=== PATIENT | male | born 1985 | race Caucasian/White ===

== ENCOUNTER 2016-11-17 10:51 | Emergency (ER) | payer OTHER ==
--- NOTE | 2016-11-17 11:19 | EDM.PDOC ---
[id number] 3d SOMETHING IN THROAT/ Time Seen by Provider: 11/17/16 11:12 Source of Information: Reports: Patient History Limitations: Reports: No Limitations - History of Present Illness INITIAL COMMENTS - FREE TEXT/NARRATIVE: pt was eating melon and he choked and since that time he has not been able to speak normally/ He has not had difficulty breathing. He is able to swallow. He is able to get his saliva down. Onset: Today Duration: Minutes:, Other (hoarse, can,t speak clearly) Location: Reports: Other (throat) Associated Symptoms: Reports: Other ( hoarseness, voice is completly different. ) Throat Pain Score (Numeric/FACES): 3 - Related Data Allergies Allergy/AdvReac Type Severity Reaction Status Date / Time No Known Allergies Allergy Verified 11/17/16 10:55 Past Medical History Psychiatric History: Reports: PTSD - Past Surgical History Other HEENT Surgeries/Procedures: SEPTAL PLASTY Social & Family History - Tobacco Use Smoking Status *Q: Unknown Ever Smoked ED ROS GENERAL - Review of Systems Review Of Systems: See Below Constitutional: Reports: Other (pt is hoarse and he is having trouble speaking. ) HEENT: Reports: No Symptoms Respiratory: Reports: Other (no difficulty with breathing) Cardiovascular: Reports: No Symptoms Endocrine: Reports: No Symptoms GI/Abdominal: Reports: No Symptoms : Reports: No Symptoms Musculoskeletal: Reports: No Symptoms Skin: Reports: No Symptoms ED EXAM, GENERAL - Physical Exam Exam: See Below Free Text/Narrative:: pt arrived with hoarseness after eating melon. He feels like he can,t speak out loud. Exam Limited By: No Limitations General Appearance: Alert, Anxious Ears: Normal TMs Nose: Normal Inspection Throat/Mouth: Normal Inspection Head: Atraumatic Neck: Normal Inspection Respiratory/Chest: No Respiratory Distress, Other (no wheezing present. ) Cardiovascular: Regular Rate, Rhythm GI/Abdominal: Soft, Non-Tender (Male) Exam: Deferred Rectal (Males) Exam: Deferred Back Exam: Normal Inspection Extremities: Normal Inspection Neurological: Alert, Oriented, Normal Cognition Psychiatric: Normal Affect Course - Vital Signs Last Recorded V/S: Last Vital Signs Temp 36.4 C 11/17/16 12:30 Pulse 61 11/17/16 12:30 Resp 16 11/17/16 12:30 BP 133/76 11/17/16 12:30 Pulse Ox 98 11/17/16 12:30 - Orders/Labs/Meds Labs: Laboratory Tests 11/17/16 11/17/16 Range/Units 11:17 11:17 WBC 7.1 (4.5-11.0) K/uL RBC 4.84 (4.30-5.90) M/uL Hgb 14.9 (12.0-15.0) g/dL Hct 42.0 (40.0-54.0) % MCV 87 (80-98) fL MCH 31 (27-31) pg MCHC 36 (32-36) % Plt Count 236 (150-400) K/uL Neut % (Auto) 51 (36-66) % Lymph % (Auto) 28 (24-44) % Hooker % (Auto) 7 H (2-6) % Eos % (Auto) 13 H (2-4) % Baso % (Auto) 1 (0-1) % Sodium 138 L (140-148) mmol/L Potassium 4.1 (3.6-5.2) mmol/L Chloride 103 (100-108) mmol/L Carbon Dioxide 29 (21-32) mmol/L Anion Gap 10.1 (5.0-14.0) mmol/L BUN 13 (7-18) mg/dL Creatinine 1.0 (0.8-1.3) mg/dL Est Cr Clr Drug Dosing 106.05 mL/min Estimated GFR (MDRD) > 60 (>60) Glucose 101 (74-106) mg/dL Calcium 8.6 (8.5-10.1) mg/dL Meds: Medications Discontinued Medications Generic Name Dose Route Start Last Admin Trade Name Freq PRN Reason Stop Dose Admin Sodium Chloride 1,000 mls @ 250 mls/hr 11/17/16 12:00 11/17/16 12:33 Normal Saline IV 250 mls/hr ASDIRECTED PAU Administration Lidocaine HCl Confirm 11/17/16 11:54 Xylocaine 4% Top Soln Administered 11/17/16 11:55 Dose 50 ml .ROUTE .STK-MED ONE Lidocaine HCl Confirm 11/17/16 11:55 Xylocaine 2% Viscous Administered 11/17/16 11:56 Dose 15 ml .ROUTE .STK-MED ONE - Re-Assessments/Exams Free Text/Narrative Re-Assessment/Exam: 11/17/16 12:22 pt ate just prior to coming here and that is when he got the melon which he choked on. He would have eaten about 1 hr and a half. ago. He will have towait for 3-4 hours prior to having anesthesia. 11/23/16 07:49 pt was watched and arrangements were made for the pt to go to the Or. He did gradually improve and was speaking normally. He was discharged at that point. Departure - Departure Time of Disposition: 13:11 Disposition: Home, Self-Care 01 Condition: Fair Clinical Impression: Foreign body in throat - Discharge Information Instructions: Swallowed Foreign Body, Adult, [id number] Referrals: PCP,None [Primary Care Provider] - Forms: ED Department Discharge Care Plan Goals: rtc if persistent problems.
[2016-11-17] MEDS ORDERED: Lidocaine 4% Top Soln 50 ML Bottle ONE (11:54)
[2016-11-17] MEDS ORDERED: Lidocaine 2% Viscous Solution 15 ML Cup ONE (11:55)
[2016-11-17] MEDS ORDERED: Sodium Chloride 0.9% 1,000 ML IV SCH (12:00)
[2016-11-17 12:32] VITALS: BP 133/76
== END 2016-11-17 13:19 | disposition home or self-care (01) ==
LOC: JP.ED 10:51
DX: T17.228A Food in pharynx causing other injury, initial encounter (principal)
CPT/HCPCS: 36415; 80048; 85025; 96360; 99284; J7040; A9270-GY

== ENCOUNTER 2017-02-20 06:34 | Day surgery (SDC) | payer OTHER ==
[2017-02-20] MEDS ORDERED: Bupivacaine 0.5% 50 ML MDV ONE (06:56)
[2017-02-20] MEDS ORDERED: Lactated Ringers 1,000 ML IV SCH (07:00)
[2017-02-20] MEDS ORDERED: Propofol 200 MG/20 ML SDV ONE (07:12)
[2017-02-20] MEDS ORDERED: Midazolam 1 MG/ML 2 ML SDV ONE (07:12)
[2017-02-20] MEDS ORDERED: fentaNYL 100 MCG/2 ML SDV ONE (07:12)
[2017-02-20] MEDS ORDERED: ceFAZolin 2 GM in Sodium Chloride 0.9% 50 ML IV ONE (07:30)
[2017-02-20] MEDS ORDERED: Acetaminophen/HYDROcodone 325-5 MG Tab PO ONE (09:00)
[2017-02-20 09:39] VITALS: BP 128/73
--- NOTE | 2017-02-20 10:58 | OR ---
DATE OF PROCEDURE: 02/20/2017 PREOPERATIVE DIAGNOSIS: Right carpal tunnel. POSTOPERATIVE DIAGNOSIS: Right carpal tunnel. INTERVENTION: Release of right transverse carpal ligament. ESTIMATED BLOOD LOSS: Minimal. COMPLICATIONS: None. INDICATION: Sara is a healthy 31-year-old, who has been having some numbness and tingling sensation at the median nerve. Also with activity, he started to have some pain. It started to worsen last May, has been persistent and progressive in nature, and bothering him on daily basis with activity. He had an EMG done, which shows early severe carpal tunnel on the right side. It was decided to proceed with surgery. I discussed with the patient, the possible risks, benefits, alternatives, and complications of surgery. The nature of the procedure was explained. All questions were answered. I had informed consent. PROCEDURE IN DETAIL: The patient is taken to the OR. I did my markings of the right wrist, and he did receive antibiotics preop. The HOSPITAL SUPERINTENDENT proceeded with slight IV sedation. The patient was put on his back, and tourniquet was applied to the right upper extremity proximity. Sterile prep and dressing were done in the usual manner of the right wrist. A time-out was taken to identify the correct surgical site, to make sure all instrumentation were present in the room. I did a local block with Marcaine 0.25% plain to subcutaneous tissue down to the transverse carpal ligament of his right wrist. The arm was elevated, tourniquet was raised to 250 mmHg. The incision was done starting at the wrist crease, going ulnar to the thenar muscle belly about 3 cm. Dissection was carried down through the subcutaneous tissue down to the transverse carpal ligament. A slight opening is done proximally with Metzenbaum scissors, making sure not to violate the deep structures, after which the groove adapter is passed underneath the transverse carpal ligament, and a gradual release is done. The ligament was quite thick. There was slight inflammation of the median nerve, which was intact at the compression site. The site was washed with saline. The skin was closed with nylon 3-0 simple sutures. A compressive dressing was applied. The tourniquet was released. Blood loss was minimal. There was no complication. The patient tolerated well the operation, and he was taken to the recovery room in good condition. Dustin Maxwell MD /[id number]
== END 2017-02-20 09:45 | disposition home or self-care (01) ==
LOC: JP.SDS 06:34
PROVIDERS: ATTEND Orthopaedic Surgery
DX: G56.01 Carpal tunnel syndrome, right upper limb (principal); Z98.890 Other specified postprocedural states; Z87.891 Personal history of nicotine dependence
CPT/HCPCS: 64721; A9270; J0690; J2250; J2704; J3010; J7050; J7120

== ENCOUNTER 2023-04-17 05:41 | Emergency (ER) | payer BC, OTHER ==
[2023-04-17 06:06] VITALS: BP 136/89; PULSE 73
[2023-04-17] MEDS ORDERED: Triamcinolone Acetonide 40 MG/ML 1 ML SDV IM PRN (06:23)
[2023-04-17] MEDS ORDERED: Albuterol 0.083% 2.5 MG/3 ML Neb Soln NEB ONE (06:24)
[2023-04-17] MEDS ORDERED: Oxymetazoline 0.05% Nasal Spray 30 ML Bottle NAS ONE (06:32)
[2023-04-17 06:36] LABS: BASOPHILS ABSOLUTE AUTO 0.06 K/uL (0.00-0.10); BASOPHILS PERCENT AUTO 0.7 % (0.1-1.3); EOSINOPHILS ABSOLUTE AUTO 0.67 K/uL (0.00-0.40); EOSINOPHILS PERCENT AUTO 7.5 % (0.0-5.4); HEMOGLOBIN 14.9 g/dL (12.9-16.9); IMMATURE GRAN ABSOLUTE AUTO 0.03 K/uL (0.00-0.23); IMMATURE GRAN PERCENT AUTO 0.3 % (0.0-0.7); LYMPHOCYTES ABSOLUTE AUTO 2.73 K/uL (0.8-3.3); LYMPHOCYTES PERCENT AUTO 30.7 % (11.4-47.7); MEAN CORPUSCULAR HGB CONC 36.3 g/dL (31.6-35.5); MEAN CORPUSCULAR VOLUME 85.2 fL (81.4-99.0); MONOCYTES ABSOLUTE AUTO 0.73 K/uL (0.20-0.90); MONOCYTES PERCENT AUTO 8.2 % (3.3-12.6); NEUTROPHILS ABSOLUTE AUTO 4.68 K/uL (1.0-7.6); NEUTROPHILS PERCENT AUTO 52.6 % (40.0-78.1); PLATELET COUNT,PLT 210 K/uL (130-375); RED BLOOD CELL COUNT 4.81 M/uL (4.14-5.76); WHITE BLOOD CELL COUNT,WBC 8.9 K/uL (3.2-11.0)
== END 2023-04-17 07:10 | disposition home or self-care (01) ==
LOC: JP.ED 05:41
DX: R09.81 Nasal congestion (principal); D72.10 Eosinophilia, unspecified; Z79.899 Other long term (current) drug therapy; Z86.16 Personal history of COVID-19
CPT/HCPCS: 36415; 85025; 94640; 96372; 99283; A9270-GY; J3301